=== PATIENT | male | born 2000 | race African-American/Black ===

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

== ENCOUNTER 2021-07-07 10:06 | Emergency (ER) | payer OTHER ==
[~2021-07-07] VITALS: Ht 172.7 cm; Wt 70.0 kg
[~2021-07-07 10:06] MED LIST changes: +ALBU2.5V8 IH; +PRED50TA PO
[2021-07-07] MEDS ORDERED: HYDROcodone/APAP 5/325MG 1 TAB TABLET PO ONE (11:30)
[2021-07-07] MEDS ORDERED: NAPROXEN 500 MG TABLET PO ONE (11:30)
[2021-07-07] MEDS ORDERED: CYCLOBENZAPRINE 10 MG TABLET. PO ONE (11:30)
--- NOTE | 2021-07-07 12:21 | RAD ---
EXAM: XR LUMBAR SPINE 2-3V, XR CERVICAL SPINE 2-3V, XR THORACIC SPINE 3VIEWS 07/07/2021 11:26 AM CLINICAL INDICATION: Pain COMPARISON: None TECHNIQUE: 3 views of the cervical spine, 3 views of the thoracic spine, and 3 views of the lumbar s pine FINDINGS: Cervical spine: No acute fracture. Alignment is normal. There is slight leftward curvature of the cer vical spine. Disc spaces and facet joints are maintained. The dens is not well evaluated on odontoid view. Prevertebral soft tissue is normal. Thoracic spine: No acute fracture. Alignment is normal. Disc spaces are maintained. Lumbar spine: Possible nondisplaced fracture through the left L1 transverse process. No other evidenc e of fracture. Alignment is normal. Disc spaces are maintained and facet joints are normal. IMPRESSION: 1. No acute osseous abnormality of the cervical or thoracic spine. 2. Possible nondisplaced left L1 transverse process fracture. Correlate with site of pain. Electronically signed by: Nicole Schofield MD (07/07/2021 12:18 PM) [id number]
--- NOTE | 2021-07-07 13:25 | RAD ---
EXAMINATION: CT LUMBAR SPINE WO, 07/07/2021 12:32 PM CLINICAL INDICATION: Back pain, possible fracture on x-ray COMPARISON: Lumbar spine radiograph same day TECHNIQUE: Helical CT imaging performed of the lumbar spine without the use of intravenous contrast. Sagittal and coronal reformats were obtained. One or more of the following individualized dose reduction techniques were utilized for this examinat ion: 1. Automated exposure control 2. Adjustment of the mA and/or kV according to patient size 3. Use of iterative reconstruction technique. FINDINGS: No acute fracture. The abnormality on radiograph corresponds to congenital incomplete fusio n of the L1 transverse process. Alignment is normal. Disc spaces are maintained. No evidence of canal or foraminal narrowing. Facet joints are normal. The visualized portion of the posterior lung bases and retroperitoneum are unremarkable. Paraspinous musculature is normal. IMPRESSION: No acute fracture. The abnormality on radiograph corresponds to congenital incomplete fus ion of the L1 transverse process. Electronically signed by: Nicole Schofield MD (07/07/2021 1:23 PM) [id number]
[2021-07-07] MEDS ORDERED: HYDR-2761 PO (13:52)
[2021-07-07] MEDS ORDERED: NAPR-695 PO (13:52)
[2021-07-07] MEDS ORDERED: CYCL10TA2 PO (13:52)
--- NOTE | 2021-07-07 13:53 | PHYS DOC ---
Past Medical History Past Medical History: Asthma Past Surgical History: No Surgical History Smoking Status: Never Smoker Alcohol Use: None Drug Use: None General Adult EDM: Chief Complaint: BACK PAIN - NO INJURY HPI: HPI: Patient is a 20 year old male who presents to the ED today complaining of 7 out of 10 neck pain, mid and low back pain, symptoms for 6 to 7 months. Patient denies any injuries. States the pain is worse on touching his back. 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 Patient denies any known trauma. Denies any pain radiating to bilateral lower extremities. Denies any loss of bowel/bladder function. Describes the pain as throbbing and intermittent. Review of Systems: Review of Systems: Constitutional: Denies fever or chills. []] GI: Denies abdominal pain, nausea, vomiting, bloody stools or diarrhea. [] : Denies dysuria. [] Musculoskeletal: Reports neck pain, mid and low back pain Integument: Denies rash. [] Neurologic: Denies headache, focal weakness or sensory changes. [] Psychiatric: Denies depression or anxiety. [] Heart Score: C/O Chest Pain: N/A Risk Factors: Risk Factors: DM, Current or recent (<one month) smoker, HTN, HLP, family history of CAD, obesity. Risk Scores: Score 0 - 3: 2.5% MACE over next 6 weeks - Discharge Home Score 4 - 6: 20.3% MACE over next 6 weeks - Admit for Clinical Observation Score 7 - 10: 72.7% MACE over next 6 weeks - Early Invasive Strategies Current Medications: Current Medications Medications (Trade) Dose Ordered Sig/[facility] Start Time Stop Time Status Last Admin Dose Admin Acetaminophen/ Hydrocodone Bitart (Lortab 5/325) 2 tab 1X ONCE 07/07/21 11:30 07/07/21 11:31 DC 07/07/21 11:33 2 TAB Cyclobenzaprine HCl (Flexeril) 10 mg 1X ONCE 07/07/21 11:30 07/07/21 11:31 DC 07/07/21 11:33 10 MG Naproxen (Naprosyn) 500 mg 1X ONCE 07/07/21 11:30 07/07/21 11:31 DC 07/07/21 11:33 500 MG Allergies: Allergies: Allergies Coded Allergies Type Severity Reaction Last Updated Verified No Known Drug Allergies 07/02/14 No Physical Exam: PE: Constitutional: Well developed, well nourished, no acute distress, non-toxic appearance. [] Neck: Normal range of motion, mild midline cervical spine tenderness, mild paraspinal muscle tenderness to the cervical spine, supple, no stridor. [] ] Abdomen: Bowel sounds normal, soft, no tenderness, no masses, no pulsatile masses. [] Skin: Warm, dry, no erythema, no rash. [] Back: Mild midline thoracic and lumbar spine tenderness, no CVA tenderness. Negative Homans' sign bilaterally Extremities: No tenderness, no cyanosis, no clubbing, ROM intact, no edema. [] Neurologic: Alert and oriented X 3, normal motor function, normal sensory function, no focal deficits noted. [] Psychologic: Affect normal, judgement normal, mood normal. [] Current Patient Data: Vital Signs: Vital Signs Date Time Temp Pulse Resp B/P (MAP) Pulse Ox O2 Delivery O2 Flow Rate FiO2 07/07/21 11:33 16 98 Room Air 07/07/21 10:09 98.7 67 124/87 98.7 EKG: EKG: [] Radiology/Procedures: Radiology/Procedures: []PROCEDURE: THORACIC SPINE 3V EXAM: XR LUMBAR SPINE 2-3V, XR CERVICAL SPINE 2-3V, XR THORACIC SPINE 3VIEWS 07/07/2021 11:26 AM CLINICAL INDICATION: Pain COMPARISON: None TECHNIQUE: 3 views of the cervical spine, 3 views of the thoracic spine, and 3 views of the lumbar spine FINDINGS: Cervical spine: No acute fracture. Alignment is normal. There is slight leftward curvature of the cervical spine. Disc spaces and facet joints are maintained. The dens is not well evaluated on odontoid view. Prevertebral soft tissue is normal. Thoracic spine: No acute fracture. Alignment is normal. Disc spaces are obey ntained. Lumbar spine: Possible nondisplaced fracture through the left L1 transverse process. No other evidence of fracture. Alignment is normal. Disc spaces are maintained and facet joints are normal. IMPRESSION: 1. No acute osseous abnormality of the cervical or thoracic spine. 2. Possible nondisplaced left L1 transverse process fracture. Correlate with site of pain. Electronically signed by: Nicole Schofield MD (07/07/2021 12:18 PM) [id number] DICTATED and SIGNED BY: NICOLE SCHOFIELD MD DATE: 07/07/21 [id number] PROCEDURE: CT LUMBAR SPINE WO CONTRAST EXAMINATION: CT LUMBAR SPINE WO, 07/07/2021 12:32 PM CLINICAL INDICATION: Back pain, possible fracture on x-ray COMPARISON: Lumbar spine radiograph same day TECHNIQUE: Helical CT imaging performed of the lumbar spine without the use of intravenous contrast. Sagittal and coronal reformats were obtained. One or more of the following individualized dose reduction techniques were utilized for this examination: 1. Automated exposure control 2. Adjustment of the mA and/or kV according to patient size 3. Use of iterative reconstruction technique. FINDINGS: No acute fracture. 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 Alignment is normal. Disc spaces are maintained. No evidence of canal or foraminal narrowing. Facet joints are normal. The visualized portion of the posterior lung bases and retroperitoneum are unremarkable. Paraspinous musculature is normal. IMPRESSION: No acute fracture. 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 Electronically signed by: Nicole Schofield MD (07/07/2021 1:23 PM) [id number] DICTATED and SIGNED BY: NICOLE SCHOFIELD MD DATE: 07/07/21 [id number] Course & Med Decision Making: Course & Med Decision Making Pertinent Labs and Imaging studies reviewed. (See chart for details) This is a 20-year-old male patient presented to the ED today complaining of neck pain, mid and low back pain, symptoms began 6 to 7 months ago. X-ray of thoracic, cervical and lumbar spine interpreted by radiologist were noted for possible L1 transverse process fracture. 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 Follow-up with PCP in 1 to 2 weeks. Also provided neurosurgery for follow-up Erin Disclaimer: Erin Disclaimer: This electronic medical record was generated, in whole or in part, using a voice recognition dictation system. Departure Departure Impression: Primary Impression: Low back pain Qualified Codes: M54.5 - Low back pain Additional Impressions: Neck pain Acute thoracic back pain Qualified Codes: M54.6 - Pain in thoracic spine Disposition: 01 HOME / SELF CARE / HOMELESS Condition: STABLE Referrals: NO PCP (PCP) Follow-up in 1 week NINI CANAS MD Patient Instructions: Back Exercises, Back Pain, Adult Additional Instructions: You were seen in the emergency room for back pain, your CT of the lumbar spine was noted for congenital deformity of the L1, no acute fractures. The x-ray of the neck and mid back are negative for any fractures. Please follow-up with your primary care doctor or the provided neurosurgeon in 1 to 2 weeks. Try to ice and elevate your back. Scripts Naproxen (NAPROXEN) 375 Mg Tablet 1 TAB PO BID for pain, #14 TAB 0 Refills with food Prov: LAY CHRIS APRN 07/07/21 Hydrocodone Bit/Acetaminophen (HYDROCODONE-APAP 5-325 ) 1 Tab Tablet 1 TAB PO PRN Q6HRS PRN for PAIN, #8 TAB 0 Refills Prov: LAY CHRIS APRN 07/07/21 Cyclobenzaprine Hcl (CYCLOBENZAPRINE HCL) 10 Mg Tablet 1 TAB PO TID, #30 TAB Prov: LAY CHRIS APRN 07/07/21 LAY CHRIS APRN Jul 07, 2021 13:53
[2021-07-07 14:03] VITALS: BP 110/62
== END 2021-07-07 14:03 | disposition home or self-care (01) ==
LOC: ER 10:06
DX: M54.2 Cervicalgia (principal); M54.5 Low back pain; M54.6 Pain in thoracic spine
CPT/HCPCS: 72040; 72072; 72100; 72131; 99284

== ENCOUNTER 2022-03-20 12:09 | Emergency (ER) | payer OTHER ==
[~2022-03-20] VITALS: Ht 172.7 cm; Wt 65.0 kg
[~2022-03-20 12:09] MED LIST changes: +CYCL10TA19 PO; +HYDR-2761 PO; +NAPR-695 PO
[2022-03-20 12:35] VITALS: BP 118/66
[2022-03-20] MEDS ORDERED: METH4TAB2 PO (12:42)
[2022-03-20] MEDS ORDERED: IBUP-1007 PO (12:42)
[2022-03-20] MEDS ORDERED: CLIN-94 PO (12:42)
--- NOTE | 2022-03-20 12:43 | PHYS DOC ---
Past Medical History Past Medical History: Asthma Past Surgical History: No Surgical History Smoking Status: Current Every Day Smoker Alcohol Use: None Drug Use: Marijuana General Adult EDM: Chief Complaint: DENTAL PROBLEM HPI: HPI: Patient is a 21-year-old male who presents today with right upper jaw pain. Patient states that he has had a tooth that has been bothering him for greater than 3 months, he said that he saw his dentist but at the time that dentist did not take his dental insurance so he did not have the tooth repaired, he presents today because he has been having increased pain over the last 3 to 5 days. Patient denies fever chills, he states he does smoke on a daily basis and does use weed. Patient states he has been taking [id number] ibuprofen that has not been helping his pain. Review of Systems: Review of Systems: Constitutional: Denies fever or chills. [] Eyes: Denies change in visual acuity. [] HENT: Right upper jaw pain denies Respiratory: Denies cough or shortness of breath. [] Cardiovascular: Denies chest pain or edema. [] GI: Denies abdominal pain, nausea, vomiting, bloody stools or diarrhea. [] : Denies dysuria. [] Musculoskeletal: Denies back pain or joint pain. [] Integument: Denies rash. [] Neurologic: Denies headache, focal weakness or sensory changes. [] Endocrine: Denies polyuria or polydipsia. [] Lymphatic: Denies swollen glands. [] Psychiatric: Denies depression or anxiety. [] Heart Score: C/O Chest Pain: No Risk Factors: Risk Factors: DM, Current or recent (<one month) smoker, HTN, HLP, family history of CAD, obesity. Risk Scores: Score 0 - 3: 2.5% MACE over next 6 weeks - Discharge Home Score 4 - 6: 20.3% MACE over next 6 weeks - Admit for Clinical Observation Score 7 - 10: 72.7% MACE over next 6 weeks - Early Invasive Strategies Allergies: Allergies: Allergies Coded Allergies Type Severity Reaction Last Updated Verified No Known Drug Allergies 07/02/14 No Physical Exam: PE: Constitutional: Well developed, well nourished, no acute distress, non-toxic appearance. [] HENT: Patient has multiple dental caries noted in his mouth and multiple fillings, he does have a broken tooth in the right upper molar, no facial swelling or gum swelling noted Eyes: PERRLA, EOMI, conjunctiva normal, no discharge. [] Neck: Normal range of motion, no tenderness, supple, no stridor. [] Cardiovascular:Heart rate regular rhythm, no murmur [] Lungs & Thorax: Bilateral breath sounds clear to auscultation [] Abdomen: Bowel sounds normal, soft, no tenderness, no masses, no pulsatile masses. [] Skin: Warm, dry, no erythema, no rash. [] Back: No tenderness, no CVA tenderness. [] Extremities: No tenderness, no cyanosis, no clubbing, ROM intact, no edema. [] Neurologic: Alert and oriented X 3, normal motor function, normal sensory function, no focal deficits noted. [] Psychologic: Affect normal, judgement normal, mood normal. [] Current Patient Data: Vital Signs: Vital Signs Date Time Temp Pulse Resp B/P (MAP) Pulse Ox O2 Delivery O2 Flow Rate FiO2 03/20/22 12:35 98.0 81 18 118/66 (83) 100 Room Air 98.0 EKG: EKG: [] Radiology/Procedures: Radiology/Procedures: [] Course & Med Decision Making: Course & Med Decision Making Pertinent Labs and Imaging studies reviewed. (See chart for details) Due to patient's limited resources he was given a list of dental clinics that he can follow-up with that help with reduced cost dental care, patient will be given a prescription for antibiotics, ibuprofen and a Medrol Dosepak to help with inflammation. Patient is to follow-up with dentist as soon as possible. Erin Disclaimer: Erin Disclaimer: This electronic medical record was generated, in whole or in part, using a voice recognition dictation system. Departure Departure Impression: Primary Impression: Pain, dental Disposition: HOME / SELF CARE / HOMELESS Condition: STABLE Referrals: NO PCP (PCP) Patient Instructions: Dental Pain Additional Instructions: Clindamycin take 1 tablet 3 times daily for 10 days Ibuprofen 600 mg take 1 tablet every 6 hours as needed for pain, take with food it may cause stomach upset if taken on an empty stomach Medrol Dosepak as prescribed Follow-up with a dentist either your primary dentist or 1 on the dental clinic list that was provided to you for further evaluation and management of your dental pain Scripts Clindamycin Hcl (CLINDAMYCIN HCL) 300 Mg Capsule 1 CAP PO TID, #30 CAP Prov: FIDEL ROSE SHORT ORDER COOK 03/20/22 Methylprednisolone (MEDROL) 4 Mg Tab.ds.pk 1 PKG PO UD, #1 PKG Prov: FIDEL ROSE SHORT ORDER COOK 03/20/22 Ibuprofen (IBUPROFEN) 600 Mg Tablet 600 MG PO PRN Q6HRS PRN for INFLAMMATION, #30 TAB Prov: FIDEL ROSE SHORT ORDER COOK 03/20/22 FIDEL ROSE SHORT ORDER COOK March 20, 2022 12:43
== END 2022-03-20 12:54 | disposition home or self-care (01) ==
LOC: ER 12:09
DX: K08.89 Other specified disorders of teeth and supporting structures (principal); J45.909 Unspecified asthma, uncomplicated; F17.200 Nicotine dependence, unspecified, uncomplicated
CPT/HCPCS: 99283